=== PATIENT | male | born 1975 | race Caucasian/White ===

== ENCOUNTER 2016-09-09 16:56 | Emergency (ER) | payer MEDICARE, MEDICAID ==
[~2016-09-09] VITALS: Ht 172.7 cm; Wt 175.0 kg
[~2016-09-09 16:56] MED LIST: ALBU8.5H2 INHALATION; LIT150 PO
[2016-09-09 16:58] VITALS: BP 132/81; PULSE 93; RESP 18; O2SAT 96
[2016-09-09] MEDS ORDERED: Albuterol 2.5 mg/3 mL Inhalation Solution NEB ONE (17:30)
[2016-09-09] MEDS ORDERED: Albuterol-Ipratropium 3 mL Inhalation Solution NEB ONE (17:30)
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
[2016-09-09 18:05] VITALS: PULSE 90; RESP 18; O2SAT 98
[2016-09-09] MEDS ORDERED: predniSONE 20 mg Tablet PO ONE (18:55)
[2016-09-09] MEDS ORDERED: _Albuterol-HFA 60 Puff Inhaler INHALATION PRN (18:55)
[2016-09-09] MEDS ORDERED: PRE20 PO (19:01)
[2016-09-09 19:13] VITALS: BP 157/89; PULSE 99; RESP 16; O2SAT 95
== END 2016-09-09 19:40 | disposition home or self-care (01) ==
LOC: SED 16:57
DX: R06.2 Wheezing (principal); R05 Cough; F17.200 Nicotine dependence, unspecified, uncomplicated; Z59.0 Homelessness
CPT/HCPCS: 87804; 94644; 99284; J7613; J7620

== ENCOUNTER 2016-09-28 16:15 | Emergency (ER) | payer MEDICARE, MEDICAID ==
[~2016-09-28] VITALS: Ht 172.7 cm; Wt 79.5 kg
[~2016-09-28 16:15] MED LIST changes: +PRE20 PO
[2016-09-28 16:21] VITALS: BP 137/84; PULSE 97; RESP 16; O2SAT 96
--- NOTE | 2016-09-28 17:15 | ED.REPORT ---
HPI-URI / Cough / Cold Date of Service Sep 28, 2016 ED Provider: Brandee Benz MD This is a 41 year old male with a history of asthma presenting to the emergency department complaining of productive cough with green sputum that began 3 days ago. Associated symptoms include sore throat, nasal congestion, fever, and chills. Denies abdominal pain, vomiting, nausea, or SOB. Pt states he was prescribed antibiotics for previously diagnosed bronchitis but was unable to complete the course. Nursing Notes Stated Complaint: THROAT PAIN Chief Complaint: Respiratory Complaints Nursing Notes Reviewed: Yes Allergies: Coded Allergies: No Known Allergies (Unverified , 09/28/16) Scheduled Albuterol HFA (Proair HFA) 8.5 Gm Hfa.aer.ad 2 PUFFS INHALATION Q4H [place] Carbonate ([place] Carbonate) 150 Mg Capsule 0 PO DAILY Prednisone (PredniSONE) 20 Mg Tablet 40 MG PO DAILY Scheduled PRN Albuterol HFA (Proair HFA) 8.5 Gm Hfa.aer.ad 2 PUFFS INHALATION Q4H PRN PRN For Wheezing General Time Seen by MD: 17:12 Chief Complaint Sore throat Hx Obtained From: Patient Arrived By: Walk-in Onset Occurred: 3 days ago Symptom Duration: Since onset Severity: Current: No pain currently Pertinent Negative: Pt denies other symptoms Recent Healthcare: No recent doctor visit, No recent hospitalization Similar Sx Previous: No Past Medical History Past Medical History asthma chronic neck pain Past Surgical History none reported Smoking History Current Every Day Smoker Social History Alcohol Use: "Social" Drug Use: THC Other Social History: Homeless Occupation stays in a tent, signed up with community [employer], told to check back monthly 07/08/2016 Ambulatory Status Independent Review of Systems Constitutional: Reports: Chills, Fever Ears / Nose / Throat: Reports: Sore throat Respiratory: Reports: Prod cough, green, Denies: Shortness of breath GI: Denies: Abdominal pain, Nausea, Vomiting Neurologic: Denies: Headache Complete sys rev & neg: except as marked. Physical Exam Initial Vital Signs Vital Signs (First) Date Time Temp Pulse Resp B/P Pulse Ox O2 Delivery O2 Flow Rate FiO2 09/28/16 16:21 36.7 97 16 137/84 96 Room Air Initial VS: Reviewed Head / Eyes: Atraumatic, Normocephalic, PERRL Neck: Supple, Non-tender, Full range of motion Cardiovascular: Regular rate & rhythm, Heart sounds normal, Intact distal pulses Abdomen / GI: Soft, Non-tender, No guarding, No rebound, No distention Extremities: Vascular intact, Neuro intact, No swelling, No tenderness Skin: Warm, Dry, No cyanosis Neurologic: Alert, Oriented, Nonfocal Psychiatric: Mood/affect normal, Behavior normal, Normal thought content General/Constitutional: Awake, Alert ENT: Airway patent, Mucous membranes moist, Pharynx NL Respiratory / Chest: Breath sounds NL, Breath sounds = bilat, No respiratory distress, No rales, No rhonchi, No wheezing Slightly hoarse voice Interpretation & Diagnostics Interpretation & Diagnostics: CHEST X-RAY IMPRESSION: No acute cardiopulmonary disease. Prominent lung volumes raise the question of chronic obstructive pulmonary disease. Dictated by: Ryland Cardenas M.D. on 09/28/2016 at 17:16 Approved by: Ryland Cardenas M.D. on 09/28/2016 at 17:17 Re-Eval/Medical Decision Med Decision/Clinical Course 41-year-old male with past medical history of asthma here with a hoarse voice along with chest congestion and cough. Differential diagnosis includes but is not limited to bronchitis versus upper respiratory infection versus pneumonia versus influenza. Chest x-ray is normal. Swab is negative. Patient was given a dose of Decadron in the emergency department and advised to follow-up with his primary care physician. He is aware and amenable to discharge at this time and has been given very strict return precautions. Counseled Regarding: Diagnosis, Lab results, Need for follow-up, When/why to return to ED Discharge & Departure Impression: Primary Impression: Upper respiratory infection URI type: unspecified URI Qualified Code: J06.9 - Acute upper respiratory infection, unspecified Disposition: Home Discharge Condition All VS Reviewed: Yes Condition: Stable Patient Instructions: Upper Respiratory Infection (ED) Additional Instructions: Follow-up with your primary care provider. Return to the emergency department if you develop any new or worsening symptoms. Referrals: Sha Perez (PCP) Scribe Attestation Portions of this note were transcribed by Carlito Saunders. I, Dr. Benz personally performed the history, physical exam and medical decision-making; I reviewed and confirmed the accuracy of the information in the transcribed note. Signed by: Carlito Saunders. 09/28/2016, 23:00. Brandee Benz MD Sep 28, 2016 17:14 CARLITO SAUNDERS Sep 28, 2016 17:32
--- NOTE | 2016-09-28 17:23 | DRSVH ---
PROCEDURE: X-RAY CHEST, TWO VIEWS ([id number]) INDICATIONS: 41-year-old male with productive cough. TECHNIQUE: 2 views of the chest were acquired. COMPARISON: [facility], CR, XR CHEST 2VW, 07/12/2016, 13:38. [facility], CR , XR CHEST 2VW, 07/08/2016, 13:21. [facility], CR, CHEST 2 VIEW, 06/11/2016, 16:55. FINDINGS: Surgical changes and devices: None. Lungs and pleura: No pleural effusions or pneumothorax. Lungs are clear. Lung volumes are prominen t. Mediastinum: Mediastinal contours are normal. Heart size is normal. Bones and chest wall: No suspicious bony abnormalities. Nonacute right seventh and eighth rib fract ures are again noted. Soft tissues appear unremarkable. IMPRESSION: No acute cardiopulmonary disease. Prominent lung volumes raise the question of chronic ob structive pulmonary disease. Dictated by: Ryland Cardenas M.D. on 09/28/2016 at 17:16 Approved by: Ryland Cardenas M.D. on 09/28/2016 at 17:17
[2016-09-28] MEDS ORDERED: Dexamethasone 10 mg/mL Inj IM ONE (17:45)
== END 2016-09-28 17:59 | disposition home or self-care (01) ==
LOC: SED 16:15
DX: J06.9 Acute upper respiratory infection, unspecified (principal); R50.9 Fever, unspecified; J45.909 Unspecified asthma, uncomplicated; F17.200 Nicotine dependence, unspecified, uncomplicated; Z59.0 Homelessness
CPT/HCPCS: 71020; 87804; 96372; 99284; J1100

== ENCOUNTER 2016-09-30 04:41 | Emergency (ER) | payer MEDICARE, MEDICAID ==
[~2016-09-30] VITALS: Ht 172.7 cm; Wt 77.3 kg
[2016-09-30 04:49] VITALS: BP 133/67; PULSE 93; RESP 18; O2SAT 98
[2016-09-30] MEDS ORDERED: _Albuterol-HFA 60 Puff Inhaler INHALATION PRN (04:55)
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
[2016-09-30 05:51] VITALS: BP 134/76; PULSE 83; RESP 20; O2SAT 98
== END 2016-09-30 05:55 | disposition home or self-care (01) ==
LOC: EDBD 04:41 → SED 04:41 → EDUNIT# 04:41 → SED 05:55
DX: J45.21 Mild intermittent asthma with (acute) exacerbation (principal); J06.9 Acute upper respiratory infection, unspecified; I10 Essential (primary) hypertension; F17.200 Nicotine dependence, unspecified, uncomplicated; Z59.0 Homelessness

== ENCOUNTER 2016-10-23 03:15 | Emergency (ER) | payer MEDICARE, MEDICAID ==
[~2016-10-23] VITALS: Ht 175.3 cm; Wt 77.3 kg
[2016-10-23 03:19] VITALS: BP 118/82; PULSE 82; RESP 14; O2SAT 99
--- NOTE | 2016-10-23 03:25 | ED.REPORT ---
HPI-Dyspnea / Wheezing Date of Service Oct 23, 2016 ED Provider: Jared Bejarano MD This is a 41 year old male with a history of asthma presenting to the emergency department via EMS complaining of dyspnea that began 5 hours ago. Associated symptoms include nasal congestion and non productive cough. Denies fever, chills , nausea, vomiting, diarrhea constipation, dysuria, or headache. Last used albuterol 2 days ago, out of medications. Nursing Notes Stated Complaint: ASTHMA Chief Complaint: Respiratory Distress Nursing Notes Reviewed: Yes Allergies: Coded Allergies: No Known Allergies (Unverified , 09/30/16) Scheduled Albuterol HFA (Proair HFA) 8.5 Gm Hfa.aer.ad 2 PUFFS INHALATION Q4H [place] Carbonate ([place] Carbonate) 150 Mg Capsule 0 PO DAILY Prednisone (PredniSONE) 20 Mg Tablet 40 MG PO DAILY Prednisone (PredniSONE) 20 Mg Tablet 20 MG PO TID Scheduled PRN Albuterol HFA (Proair HFA) 8.5 Gm Hfa.aer.ad 2 PUFFS INHALATION Q4H PRN PRN For Wheezing General Time Seen by MD: 03:17 Chief Complaint Shortness of breath Hx Obtained From: Patient Arrived By: Walk-in Sudden in Onset?: Yes Onset Occurred: 5 - 8 hours ago Symptom Duration: Since onset Severity: Current: No pain currently Pertinent Negative: Pt denies other symptoms Recent Healthcare: No recent doctor visit, No recent hospitalization Similar Sx Previous: No Past Medical History Past Medical History asthma chronic neck pain Past Surgical History none reported Smoking History Current Every Day Smoker Social History Alcohol Use: "Social" Drug Use: THC Other Social History: Homeless Occupation stays in a tent, signed up with community [employer], told to check back monthly 07/08/2016 Ambulatory Status Independent Review of Systems Constitutional: Denies: Chills, Fever Respiratory: Reports: Non-productive cough, Shortness of breath Complete sys rev & neg: except as marked. GI: Denies: Abdominal pain, Constipation, Diarrhea, Nausea, Vomiting Physical Exam Initial Vital Signs Vital Signs (First) Date Time Temp Pulse Resp B/P Pulse Ox O2 Delivery O2 Flow Rate FiO2 10/23/16 03:19 36.3 82 14 118/82 99 Simple Mask 7 Initial VS: Reviewed, Vital signs normal Head / Eyes: Atraumatic, Normocephalic, PERRL ENT: Mucous membranes moist, Conjunctiva normal, No scleral icterus Abdomen / GI: Soft, Non-tender, No guarding, No rebound, No distention Extremities: Vascular intact, Neuro intact, No swelling, No tenderness Skin: Warm, Dry, No cyanosis Neurologic: Alert, Oriented, Nonfocal Psychiatric: Mood/affect normal, Behavior normal, Normal thought content General/Constitutional: Awake, Alert Neck: Atraumatic, Supple, No meningismus, Full range of motion, No swelling, Non-tender, No masses Respiratory / Chest: No chest tenderness Wheezing / Retractions: Positive: Wheeze insp/exp diffuse Cardiovascular: Heart rate NL, Regular rhythm, Heart sounds NL, Peripheral circulation NL Re-Eval/Medical Decision Med Decision/Clinical Course Noncompliant 41-year-old male who still smokes presents with wheezing. He used up his inhaler. He has another one at the pharmacy but he will be L the pick that up. He was given an albuterol metered-dose inhaler and prednisone. He was discharged home to follow up with his primary doctor. Counseled Regarding: Diagnosis, Lab results, Need for follow-up, When/why to return to ED Discharge & Departure Impression: Primary Impression: Asthma Asthma severity: mild persistent Asthma complication type: with acute exacerbation Qualified Code: J45.31 - Mild persistent asthma with (acute) exacerbation Disposition: Home Discharge Condition All VS Reviewed: Yes Condition: Stable Patient Instructions: Asthma (ED) Additional Instructions: Albuterol inhaler 2 puffs every 4-6 hours as needed, #1 dispensed. Prednisone 20 mg by mouth 3 times a day, first dose given in the emergency room to be followed by #15 prescription. Stop smoking. Referrals: Sha Perez (PCP) Scribe Attestation Portions of this note were transcribed by Carlito Saunders. I, Dr. Bejarano personally performed the history, physical exam and medical decision-making; I reviewed and confirmed the accuracy of the information in the transcribed note. Signed by: leann Stone. 10/22/2016, 06:00. Jared Bejarano MD Oct 23, 2016 03:25 CARLITO SAUNDERS Oct 23, 2016 03:27
[2016-10-23] MEDS ORDERED: PRE20 PO (03:54)
[2016-10-23] MEDS ORDERED: _Albuterol-HFA 60 Puff Inhaler INHALATION PRN (03:55)
[2016-10-23] MEDS ORDERED: predniSONE 20 mg Tablet PO ONE (03:55)
[2016-10-23 05:22] VITALS: BP 120/80; PULSE 80; RESP 16; O2SAT 100
== END 2016-10-23 05:20 | disposition home or self-care (01) ==
LOC: SED 03:15 → EDUNIT# 03:15 → EDBD 03:15 → SED 05:20
DX: J45.31 Mild persistent asthma with (acute) exacerbation (principal); F17.200 Nicotine dependence, unspecified, uncomplicated

== ENCOUNTER 2016-11-17 01:51 | Emergency (ER) | payer MEDICARE, MEDICAID ==
[~2016-11-17] VITALS: Ht 172.7 cm; Wt 79.5 kg
[2016-11-17 01:55] VITALS: BP 137/86; PULSE 90; RESP 16; O2SAT 96
--- NOTE | 2016-11-17 02:04 | ED.REPORT ---
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 He states that he has coughed up green and yellow sputum over the past several weeks, but his sputum has been clear recently. Associated symptoms include subjective fever, diaphoresis, and severe chest congestion upon awakening this morning. Nursing Notes Stated Complaint: DIFFICULTY BREATHING Chief Complaint: Respiratory Complaints Nursing Notes Reviewed: Yes Allergies: Coded Allergies: No Known Allergies (Unverified , 09/30/16) Scheduled Albuterol HFA (Proair HFA) 8.5 Gm Hfa.aer.ad 2 PUFFS INHALATION Q4H [place] Carbonate ([place] Carbonate) 150 Mg Capsule 0 PO DAILY Prednisone (PredniSONE) 20 Mg Tablet 40 MG PO DAILY Prednisone (PredniSONE) 20 Mg Tablet 20 MG PO TID Scheduled PRN Albuterol HFA (Proair HFA) 8.5 Gm Hfa.aer.ad 2 PUFFS INHALATION Q4H PRN PRN For Wheezing General Time Seen by MD: 02:04 Chief Complaint Other (Shortness of Breath) Hx Obtained From: Patient Arrived By: Walk-in Sudden in Onset?: No Onset Occurred: More than a week ago... (1 month) Symptom Duration: Since onset Associated with: Reports: Congestion, Cough, Diaphoresis, Fever Pertinent Negative: Pt denies other symptoms Context Related History: Reports Asthma Similar Sx Previous: Yes Past Medical History Past Medical History asthma chronic neck pain Past Surgical History none reported Smoking History Current Every Day Smoker Social History Alcohol Use: "Social" Drug Use: THC Other Social History: Homeless Occupation stays in a tent, signed up with community [employer], told to check back monthly 07/08/2016 Ambulatory Status Independent Review of Systems Full Review of Systems Constitutional: Reports: Fever, Denies: Chills Respiratory: Reports: Prod cough, clear, Prod cough, green, Prod cough, yellow , Shortness of breath, Denies: Hemoptysis Cardiovascular: Denies: Chest pain GI: Denies: Nausea, Vomiting Skin: Reports Diaphoresis Complete sys rev & neg: except as marked. Physical Exam Vital Signs Vital Signs Date Time Temp Pulse Resp B/P Pulse Ox O2 Delivery O2 Flow Rate FiO2 11/17/16 02:50 67 22 96 Room Air 11/17/16 01:55 35.9 90 16 137/86 96 Room Air Initial VS: Reviewed Head / Eyes: Atraumatic, Normocephalic Neck: Supple, Non-tender, Full range of motion Abdomen / GI: Soft, Non-tender, No guarding, No rebound, No distention Extremities: Vascular intact, Neuro intact, No swelling, No tenderness Skin: Warm, Dry, No cyanosis Neurologic: Alert, Oriented, Nonfocal General/Constitutional: Awake, Alert, Well developed, Well nourished Respiratory / Chest: No rales, No rhonchi, No wheezing Diminished Breath Sounds: Positive: Decreased bilateral Bronchospasm. Breathing at top of respiratory effort. Cardiovascular: Heart rate NL, Regular rhythm, Heart sounds NL, Cap refill not delayed, Peripheral circulation NL Interpretation & Diagnostics X-Ray Chest Interpretation Chest Xray Interpretation: Increased lung volumes. Blunting of the costophrenic angles. View: Portable, 1 view Interpretation / Wet Read by: Wet read ED physician Re-Eval/Medical Decision Med Decision/Clinical Course 41-year-old chronic smoker presents with shortness of breath, bronchospasm, breathing at the top of his respiratory cycle. He is in mild distress but improved after nebulizers. A puffer and spacer was provided. Discussed his need to quit smoking with him. He appears disinterested in this advice. I went back to reassess him after his round of treatment and to provide steroids and completion of his therapy, but he apparently had departed upon receiving his albuterol puffer. Time of Eval: 03:34 Re-Evaluation/Progress Note: Patient eloped. Discharge & Departure Primary Impression: COPD (chronic obstructive pulmonary disease) Additional Impression: Tobacco abuse Disposition: AGAINST MEDICAL ADVICE Discharge Condition All VS Reviewed: Yes Condition: Improved Referrals: Sha Perez (PCP) Scribe Attestation Portions of this note were transcribed by Yao Churchill. I, Dr. Mathew, personally performed the history, physical exam and medical decision-making; I reviewed and confirmed the accuracy of the information in the transcribed note. Signed by: Yang Osuna. 11/17/2016 - 03:34 copies to: Sha Perez Christopher W MD Nov 17, 2016 02:04 YAO CHURCHILL Nov 17, 2016 02:35
[2016-11-17] MEDS ORDERED: Dexamethasone 20 mg/2 mL Oral Solution PO ONE (02:40)
[2016-11-17] MEDS ORDERED: Albuterol-Ipratropium 3 mL Inhalation Solution NEB ONE (02:40)
[2016-11-17] MEDS ORDERED: _Albuterol-HFA 60 Puff Inhaler INHALATION PRN (02:40)
[2016-11-17] MEDS ORDERED: Albuterol 2.5 mg/3 mL Inhalation Solution NEB ONE (02:40)
[2016-11-17 02:50] VITALS: PULSE 67; RESP 22; O2SAT 96
--- NOTE | 2016-11-17 08:52 | DRSVH ---
PROCEDURE: X-RAY CHEST, TWO VIEWS ([id number]) INDICATIONS: cough poss pneumonia TECHNIQUE: 2 views of the chest were acquired. COMPARISON: [facility], CR, XR CHEST 2VW, 09/28/2016, 17:08. FINDINGS: Surgical changes and devices: None. Lungs and pleura: No pleural effusions or pneumothorax. Lungs are clear. Lung volumes are increase d with flattening of the hemidiaphragms suggesting COPD. Mediastinum: Mediastinal contours are normal. Heart size is normal. Bones and chest wall: No suspicious bony abnormalities. Soft tissues appear unremarkable. IMPRESSION: No acute cardiopulmonary disease. Dictated by: Ken Wilhelm RRA Interpreted: Kaylie Solares MD on 11/17/2016 at 8:51 Transcribed by: ARIK on 11/17/2016 at 8:51 Approved by: Kaylie Solares MD, PhD on 11/17/2016 at 12:50
[2016-11-18] MEDS ORDERED: HYDR-4003 PO (12:56)
[2016-11-18] MEDS ORDERED: AMOX500C2 PO (12:56)
== END 2016-11-17 03:45 | disposition left against medical advice (07) ==
LOC: SED 01:51
DX: J44.9 Chronic obstructive pulmonary disease, unspecified (principal); J45.909 Unspecified asthma, uncomplicated; F17.200 Nicotine dependence, unspecified, uncomplicated; Z59.0 Homelessness
CPT/HCPCS: 71020; 94640; 94644; 99284; J7613; J7620

== ENCOUNTER 2016-11-18 12:24 | Emergency (ER) | payer MEDICARE, MEDICAID ==
[~2016-11-18] VITALS: Ht 172.7 cm; Wt 81.8 kg
[2016-11-18 12:33] VITALS: BP 125/82; PULSE 92; RESP 16; O2SAT 97
--- NOTE | 2016-11-18 12:47 | ED.REPORT ---
HPI-Dental/Mouth Prob Date of Service Nov 18, 2016 ED Provider: Leila Powell MD Patient is a 41 year old male with a history of hypertension, smoking, marijuana use, and asthma presenting to the ED complaining of tooth pain onset one month ago. The patient states that the pain is from his upper right tooth which is rotten to the gumline, but he has not been seen by a dentist due to a lack of dental insurance. He admits to photophobia, difficulty concentrating, right-sided headache and a slight bad taste in his mouth. He denies fever, chills, nausea, vomiting, swelling or discharge. The pt has been seen at [facility] for this, but states that he is only given a cleaning and discharged. Nursing Notes Stated Complaint: POSS INFECTION IN TOOTH Chief Complaint: Dental Nursing Notes Reviewed: Yes Allergies: Coded Allergies: No Known Allergies (Unverified , 11/18/16) Scheduled Amoxicillin (Amoxicillin) 500 Mg Capsule 500 MG PO TID Scheduled PRN Albuterol HFA (Proair HFA) 8.5 Gm Hfa.aer.ad 2 PUFFS INHALATION Q4H PRN PRN For Wheezing Hydrocodone-Acetaminophen 5-325 mg (Hydrocodone-Acetaminophen 5-325 mg) 1 Each Tablet 1 TABLET PO Q4H PRN PRN For Pain General Time Seen by MD: 12:47 Chief Complaint Tooth pain Hx Obtained From: Patient Arrived By: Walk-in Onset Occurred: More than a week ago... (1 month) Symptom Duration: Since onset Severity: Current: Moderate Severity: Maximum: Moderate Recent Healthcare: No recent hospitalization, Recent doctor visit Similar Sx Previous: Yes Past Medical History Past Medical History chronic neck pain Reports: Asthma, Hypertension Past Surgical History none reported Smoking History Current Every Day Smoker Social History Alcohol Use: "Social" Drug Use: THC Other Social History: Homeless Occupation stays in a tent, signed up with community [employer], told to check back monthly 07/08/2016 Ambulatory Status Independent Review of Systems Review of Systems Note: denies discharge denies swelling Constitutional: Denies: Chills, Fever GI: Denies: Nausea, Vomiting Complete sys rev & neg: except as marked. Eyes: Reports: Photophobia Neurologic: Reports: Headache Physical Exam Initial Vital Signs Vital Signs (First) Date Time Temp Pulse Resp B/P Pulse Ox O2 Delivery O2 Flow Rate FiO2 11/18/16 12:33 36.2 92 16 125/82 97 Room Air Initial VS: Reviewed, Vital signs normal ENT: Atraumatic, Airway patent, Mucous membranes moist no facial swelling tooth #14 rotten to gumline no discharge Neck: Atraumatic, Supple, Full range of motion, No adenopathy no neck swelling General/Constitutional: Awake, Alert, No acute distress Head / Eyes: Atraumatic, Normocephalic, PERRL, EOMI Respiratory / Chest: Atraumatic, Breath sounds NL, Breath sounds = bilat, No respiratory distress Cardiovascular: Heart rate NL, Regular rhythm, Heart sounds NL Neurologic: Oriented X3, Speech NL, No motor deficits, No sensory deficits Abdomen: Atraumatic Back: Atraumatic, Full range of motion Upper Extremity / MS: Atraumatic, Full range of motion Lower Extremity / Pelvis / MS: Atraumatic, Full range of motion Skin: Atraumatic, Color NL, No rash, Warm, Dry Psychiatric: Affect NL, Mood NL Re-Eval/Medical Decision Med Decision/Clinical Course The patient presents with pain, he does not have any signs of infection other than the change in taste in his mouth. He declined an injection and was started on antibiotics. Source of Hx: Old records Re-Evaluation/Progress : Time of Eval: 12:47 Patient Status: Condition improved Re-Evaluation/Progress Note: Discussed plan for discharge during examination. The patient understands and agrees to the plan for discharge. All questions were addressed at this time. Counseled Regarding: Diagnosis, Need for follow-up, When/why to return to ED Discharge & Departure Primary Impression: Pain, dental Additional Impression: Dental infection Disposition: Home Discharge Condition All VS Reviewed: Yes Condition: Stable Patient Instructions: Dental Caries (ED) Additional Instructions: Follow up with your dentist for further evaluation. Return to the emergency department if you develop any new or worsening symptoms including swelling or fever. Referrals: Sha Perez (PCP) Scribe Attestation Portions of this note were transcribed by Danielle Hendrix and Anabelle Page. I, Dr. Powell personally performed the history, physical exam and medical decision- making; I reviewed and confirmed the accuracy of the information in the transcribed note. Signed by: Danielle Hendrix and Yang Davenport, 11/18/16 and 1654. copies to: Sha Perez Jena M MD Nov 18, 2016 12:47 Babs Hendrix Nov 18, 2016 13:00 ANABELLE PAGE Nov 18, 2016 15:20 and 1450. copies to: Sha Perez Jena M MD Nov 18, 2016 12:47 Babs Hendrix Nov 18, 2016 13:00 ANABELLE PAGE Nov 18, 2016 15:20
[2016-11-18] MEDS ORDERED: Amoxicillin 80 mg/mL 100 mL Suspension PO ONE (12:55)
[2016-11-18] MEDS ORDERED: HYDROcodone-APAP 5-325 mg Tablet PO ONE (12:55)
[2016-11-18] MEDS ORDERED: HYDR-4003 PO (12:56)
[2016-11-18] MEDS ORDERED: AMOX500C2 PO (12:56)
== END 2016-11-18 13:35 | disposition home or self-care (01) ==
LOC: SED 12:24
DX: K04.7 Periapical abscess without sinus (principal); J45.909 Unspecified asthma, uncomplicated; I10 Essential (primary) hypertension; F12.20 Cannabis dependence, uncomplicated; F17.200 Nicotine dependence, unspecified, uncomplicated; Z59.0 Homelessness

== ENCOUNTER 2016-11-30 09:54 | Emergency (ER) | payer MEDICARE, MEDICAID ==
[~2016-11-30] VITALS: Ht 172.7 cm; Wt 79.5 kg
[~2016-11-30 09:54] MED LIST changes: +AMOX500C2 PO; +HYDR-4003 PO; -LIT150 PO; -PRE20 PO
[2016-11-30 10:01] VITALS: BP 138/82; PULSE 77; RESP 20; O2SAT 99
--- NOTE | 2016-11-30 10:28 | ED.REPORT ---
HPI-Dyspnea / Wheezing Date of Service Nov 30, 2016 ED Provider: Cipriano Valdivia MD Patient is a 41 year old patient with a history of asthma, COPD, and hypertension who presents to the ED complaining of acute on chronic shortness of breath onset last night. The patient also reports a cough with a yellow/ greenish sputum, congestion, rhinorrhea, "overheating", and chest pain secondary to coughing. He denies pain or swelling in his legs, and recent immobilization or travel. Patient is requesting emergency Albuterol inhaler to take home. Nursing Notes Stated Complaint: SHORTNESS OF BREATH Chief Complaint: Respiratory Complaints Nursing Notes Reviewed: Yes Allergies: Coded Allergies: No Known Allergies (Unverified , 11/18/16) Scheduled Amoxicillin (Amoxicillin) 500 Mg Capsule 500 MG PO TID Azithromycin (Zithromax (Z-Sheldon)) 250 Mg Tablet 250 MG PO DIRECTED Take two tablets by mouth on day 1, then take one tablet daily on days 2 through 5. [place] Carbonate ([place] Carbonate) 150 Mg Capsule 150 MG PO DAILY Scheduled PRN Albuterol HFA (Proair HFA) 8.5 Gm Hfa.aer.ad 2 PUFFS INHALATION Q4H PRN PRN For Wheezing Hydrocodone-Acetaminophen 5-325 mg (Hydrocodone-Acetaminophen 5-325 mg) 1 Each Tablet 1 TABLET PO Q4H PRN PRN For Pain General Time Seen by MD: 10:26 Chief Complaint Shortness of breath Hx Obtained From: Patient Arrived By: Walk-in Sudden in Onset?: No Onset Occurred: Yesterday Symptom Duration: Since onset Recent Healthcare: Recent doctor visit Similar Sx Previous: Yes Past Medical History Past Medical History chronic neck pain Reports: Asthma, COPD, Hypertension Past Surgical History none reported Smoking History Former Smoker Social History Alcohol Use: "Social" Drug Use: THC Other Social History: Homeless Occupation stays in a tent, signed up with community [employer], told to check back monthly 07/08/2016 Ambulatory Status Independent Review of Systems Ears / Nose / Throat: Reports: Nasal congestion Respiratory: Reports: Prod cough, green, Prod cough, yellow, Shortness of breath Cardiovascular: Reports: Chest pain (due to cough) Musculoskeletal: Denies: Extremity pain, Extremity swelling Allergy / Immune: Reports: Rhinorrhea Complete sys rev & neg: except as marked. GI: Denies: Nausea, Vomiting Physical Exam Initial Vital Signs Vital Signs (First) Date Time Temp Pulse Resp B/P Pulse Ox O2 Delivery O2 Flow Rate FiO2 11/30/16 10:01 36.0 77 20 138/82 99 Room Air Initial VS: Reviewed General/Constitutional: Awake, Alert, No acute distress Neck: Supple Respiratory / Chest: Atraumatic, Breath sounds NL, Breath sounds = bilat, No respiratory distress Wheezing / Retractions: Positive: Wheeze insp/exp diffuse no crackles Cardiovascular: Heart rate NL, Regular rhythm, Heart sounds NL, No murmurs ENT: Airway patent, Mucous membranes moist Abdomen: Soft, Non-tender Lower Extremity / Pelvis / MS: Full range of motion, No edema Skin: Atraumatic, Color NL, No rash, Warm, Dry Neurologic: Oriented X3, Speech NL, No motor deficits, No sensory deficits Psychiatric: Affect NL, Mood NL Interpretation & Diagnostics X-Ray Chest Interpretation Chest Xray Interpretation: IMPRESSION: Negative chest. No acute cardiopulmonary process is evident. No pneumonia. Dictated by: Aime Daniels M.D. on 11/30/2016 at 10:16 Approved by: Aime Daniels M.D. on 11/30/2016 at 10:17 View: Portable, 1 view Interpretation / Wet Read by: Interpret - Radiologist Re-Eval/Medical Decision Med Decision/Clinical Course 41-year-old male smoker presenting with coughing but active green sputum for several days and wheezing. Patient treated for acute bronchitis with Z-Sheldon and albuterol inhaler as needed. Patient also requested a refill on his lithium I gave him a seven-day supply as he has a follow-up with his primary doctor in 6 days. [place] 150 mg per home dose. Source of Hx: Old records Re-Evaluation/Progress : Time of Eval: 10:35 Re-Evaluation/Progress Note: Discussed plan for treatment and plan for discharge in the room. The patient understands and agrees to the plan for treatment and discharge. All questions were addressed. Counseled Regarding: Diagnosis, Need for follow-up, When/why to return to ED Discharge & Departure Impression: Primary Impression: Acute bronchitis Additional Impression: Schizo affective schizophrenia Disposition: Home Discharge Condition All VS Reviewed: Yes Condition: Stable Patient Instructions: Acute Bronchitis (ED) Additional Instructions: Take Z-pack and inhaler as prescribed. Follow up with your primary care physician in 1-2 days for a re-evaluation. Please return to the emergency department if you develop any new or worsening symptoms including difficulty breathing. You have a doctor appointment scheduled for December 08 at 09:15AM at [address] [place], [place] with Dr. Summer Sharpe, Family Medicine. Referrals: Sha Perez (PCP) [place] Attestation Portions of this note were transcribed by Danielle Hendrix and Richard Churchill. I, Dr. Valdivia personally performed the history, physical exam and medical decision-making; I reviewed and confirmed the accuracy of the information in the transcribed note. Signed by: Danielle Hendrix and Yang Osuna, and 11:47 copies to: Sha Perez Ben M MD Nov 30, 2016 10:28 Babs Hendrix Nov 30, 2016 10:36 RICHARD CHURCHILL Nov 30, 2016 10:48
[2016-11-30] MEDS ORDERED: Albuterol 2.5 mg/3 mL Inhalation Solution NEB ONE (10:35)
[2016-11-30] MEDS ORDERED: _Albuterol-HFA 60 Puff Inhaler INHALATION PRN (10:40)
[2016-11-30 10:44] VITALS: PULSE 75; RESP 20; O2SAT 98
[2016-11-30] MEDS ORDERED: AZIT250T4 PO (10:51)
--- NOTE | 2016-11-30 11:19 | DRSVH ---
PROCEDURE: X-RAY CHEST ONE VIEW, PORTABLE ([id number]) INDICATIONS: cough TECHNIQUE: One view of the chest was acquired. COMPARISON: [facility], CR, XR CHEST 2VW, 11/17/2016, 2:11. FINDINGS: Surgical changes and devices: None. Lungs and pleura: No pleural effusions or pneumothorax. Lungs are clear. Mediastinum: Mediastinal contours appear normal. Heart size is normal. Bones and chest wall: No suspicious bony lesions. Overlying soft tissues appear unremarkable. IMPRESSION: Negative chest. No acute cardiopulmonary process is evident. No pneumonia. Dictated by: Aime Daniels M.D. on 11/30/2016 at 10:16 Approved by: Aime Daniels M.D. on 11/30/2016 at 10:17
[2016-11-30] MEDS ORDERED: LIT150 PO (11:24)
[2016-11-30 11:37] VITALS: BP 111/66; PULSE 80; RESP 16; O2SAT 98
== END 2016-11-30 10:51 | disposition home or self-care (01) ==
LOC: SED 09:54
DX: J20.9 Acute bronchitis, unspecified (principal); F25.9 Schizoaffective disorder, unspecified; J45.909 Unspecified asthma, uncomplicated; J44.9 Chronic obstructive pulmonary disease, unspecified; I10 Essential (primary) hypertension; Z87.891 Personal history of nicotine dependence

== ENCOUNTER 2016-12-05 03:06 | Emergency (ER) | payer MEDICARE, MEDICAID ==
[~2016-12-05] VITALS: Ht 172.7 cm; Wt 79.5 kg
[~2016-12-05 03:06] MED LIST changes: +AZIT250T4 PO; +LIT150 PO
--- NOTE | 2016-12-05 03:11 | ED.REPORT ---
HPI-Dyspnea / Wheezing Date of Service Dec 05, 2016 ED Provider: Dr. Wilian Mathew M.D. A 41 year old male with a medical history including asthma, COPD, hypertension, and schizo affective schizophrenia presents to the ED with shortness of breath onset suddenly just prior to arrival, [place] He took a puff from his albuterol without relief. He then smoked a cigarette, also without relief. Associated symptoms include wheeze and productive cough with white sputum. The patient denies other symptoms. EMS found him with a BP of 134/73 and otherwise normal vital signs. The patient was given a DuoNeb treatment en route. He was seen in the ED on 11/30 with similar symptoms. The patient does not have an inhaler at home. Nursing Notes Stated Complaint: SHORT OF BREATH Nursing Notes Reviewed: Yes Allergies: Coded Allergies: No Known Allergies (Unverified , 12/05/16) Scheduled Amoxicillin (Amoxicillin) 500 Mg Capsule 500 MG PO TID Azithromycin (Zithromax (Z-Sheldon)) 250 Mg Tablet 250 MG PO DIRECTED Take two tablets by mouth on day 1, then take one tablet daily on days 2 through 5. [place] Carbonate ([place] Carbonate) 150 Mg Capsule 150 MG PO DAILY Prednisone (PredniSONE) 20 Mg Tablet 60 MG PO DAILY Scheduled PRN Albuterol HFA (Proair HFA) 8.5 Gm Hfa.aer.ad 2 PUFFS INHALATION Q4H PRN PRN For Wheezing Hydrocodone-Acetaminophen 5-325 mg (Hydrocodone-Acetaminophen 5-325 mg) 1 Each Tablet 1 TABLET PO Q4H PRN PRN For Pain General Time Seen by MD: 03:11 Chief Complaint Shortness of breath Hx Obtained From: Patient Arrived By: Ambulance Sudden in Onset?: Yes Onset Occurred: Just prior to arrival Context of Onset: Exposure, chemical Symptom Duration: Since onset Severity: Current: No pain currently Severity: Maximum: No pain Associated with: Reports: Cough Context Related History: Reports: COPD Asthma History: Asthma diagnosed Recent Healthcare: Recent doctor visit Similar Sx Previous: Yes Past Medical History Past Medical History Chronic neck pain Schizo affective schizophrenia Reports: Asthma, COPD, Hypertension Past Surgical History None reported Smoking History Current Every Day Smoker Social History Alcohol Use: "Social" Drug Use: THC Other Social History: Homeless Occupation stays in a tent, signed up with community [employer], told to check back monthly 07/08/2016 Ambulatory Status Independent Review of Systems Constitutional: Denies: Fever Respiratory: Reports: Prod cough, white, Shortness of breath, Wheezing Complete sys rev & neg: except as marked. GI: Denies: Diarrhea, Vomiting Physical Exam Initial Vital Signs Vital Signs (First) Date Time Temp Pulse Resp B/P Pulse Ox O2 Delivery O2 Flow Rate FiO2 12/05/16 03:13 36.2 86 24 134/91 99 Room Air Initial VS: Reviewed Head / Eyes: Atraumatic, Normocephalic ENT: Conjunctiva normal, No scleral icterus Skin: Warm, Dry, No cyanosis Neurologic: Alert, Oriented, Nonfocal Psychiatric: Mood/affect normal, Behavior normal, Normal thought content General/Constitutional: Awake, Alert Neck: Supple, Full range of motion Respiratory / Chest: Breath sounds = bilat, No respiratory distress Wheezing / Retractions: Positive: Wheezing moderate (Bilaterally) Wheezy cough Cardiovascular: Heart rate NL, Regular rhythm, Heart sounds NL Re-Eval/Medical Decision Med Decision/Clinical Course 41-year-old with intermittent asthma and COPD presents after being exposed to burning plastic smoke, with an exacerbation of his proximal spasm. He continues to smoke despite intermittent bronchospastic symptoms. He is improved here after nebulizers. He is discharged now with a brief prednisone course, Renewal of his nebulizer, and plan for follow-up with his PCP. Source of Hx: Old records Re-Evaluation/Progress : Time of Eval: 03:40 Patient Status: Condition improved Re-Evaluation/Progress Note: Discussed with patient diagnosis and plan for discharge. Follow-up and return to the ER instructions given. Patient agrees with plan for care and all questions were addressed. Counseled Regarding: Diagnosis, Need for follow-up, When/why to return to ED Discharge & Departure Shift Change Sign-Out Response to Therapy: Improved Impression: Primary Impression: Asthma Asthma severity: mild intermittent Asthma complication type: with acute exacerbation Qualified Code: J45.21 - Mild intermittent asthma with (acute) exacerbation Additional Impressions: COPD (chronic obstructive pulmonary disease) COPD type: chronic bronchitis Chronic bronchitis type: unspecified Qualified Code: J42 - Unspecified chronic bronchitis Tobacco abuse Disposition: Home Discharge Condition All VS Reviewed: Yes Condition: Improved Patient Instructions: Chronic Obstructive Pulmonary Disease (ED) Additional Instructions: It is critical that you quit smoking. Prednisone three tabs daily for a week. Albuterol puffer two puffs with spacer every four hours for wheeze or cough Follow-up with your doctor in the office. Return if any immediate issues with breathing. Referrals: Sha Perez (PCP) Scribe Attestation Portions of this note were transcribed by Dominga Dominguez. I, Dr. Mathew, personally performed the history, physical exam, and medical decision-making; I reviewed and confirmed the accuracy of the information in the transcribed note. Signed by: Yang Medellin, 12/05/2016, 05:14 copies to: Sha Perez Christopher W MD Dec 05, 2016 03:11 DOMINGA DOMINGUEZ Dec 05, 2016 03:21
[2016-12-05 03:13] VITALS: BP 134/91; PULSE 86; RESP 24; O2SAT 99
[2016-12-05] MEDS ORDERED: _Albuterol-HFA 60 Puff Inhaler INHALATION PRN (03:15)
[2016-12-05] MEDS ORDERED: Albuterol 2.5 mg/3 mL Inhalation Solution NEB ONE (03:15)
[2016-12-05] MEDS ORDERED: Dexamethasone 20 mg/2 mL Oral Solution PO ONE (03:15)
[2016-12-05 03:34] VITALS: PULSE 87; RESP 20; O2SAT 99
[2016-12-05] MEDS ORDERED: PRE20 PO (03:49)
[2016-12-05 03:59] VITALS: BP 139/92; PULSE 84; RESP 24; O2SAT 95
[2016-12-05 04:19] VITALS: BP 131/96; PULSE 84; RESP 20; O2SAT 97
== END 2016-12-05 04:19 | disposition home or self-care (01) ==
LOC: SED 03:06
DX: J45.21 Mild intermittent asthma with (acute) exacerbation (principal); J42 Unspecified chronic bronchitis; F17.200 Nicotine dependence, unspecified, uncomplicated; I10 Essential (primary) hypertension; Z79.899 Other long term (current) drug therapy
CPT/HCPCS: 94664; 99283; J7613